=== PATIENT | male | born 2000 | race American Indian/Alaskan Native ===

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

== ENCOUNTER 2020-08-14 06:39 | Emergency (ER) | payer OTHER ==
--- NOTE | 2020-08-14 06:41 | ED ---
General Adult HPI - General Stated complaint: Mental Health Time Seen by Provider: 08/14/20 06:40 Source: patient, RN notes reviewed Mode of arrival: ambulatory Limitations: no limitations - History of Present Illness Initial comments: 20-year-old male presents to the emergency room for a chief complaint of "being stressed out." Patient reports a week ago he fell and his cousin who had been killed by gang members. Patient reports that since that time he has had a difficult time coping with this. Patient states he cut his arm for the first time to help try to cope. He states he did not want to harm himself but did not know how to make himself feel better otherwise. He denies any suicidal thoughts. Denies homicidal thoughts or thoughts of harming anyone else.Patient has no other complaints at this time including shortness of breath, chest pain, abdominal pain, nausea or vomiting, headache, or visual changes. - Related Data Home Medications Medication Instructions Recorded Confirmed No Known Home Medications 08/14/20 08/14/20 Allergies Allergy/AdvReac Type Severity Reaction Status Date / Time No Known Allergies Allergy Verified 08/14/20 13:25 Review of Systems ROS Statement: Those systems with pertinent positive or pertinent negative responses have been documented in the HPI. ROS Other: All systems not noted in ROS Statement are negative. Past Medical History Past Medical History: No Reported History History of Any Multi-Drug Resistant Organisms: None Reported Past Surgical History: No Surgical Hx Reported Past Psychological History: No Psychological Hx Reported Past Alcohol Use History: None Reported Past Drug Use History: None Reported General Exam General appearance: alert, in no apparent distress Head exam: Present: atraumatic, normocephalic, normal inspection Eye exam: Present: normal appearance, PERRL, EOMI. Absent: scleral icterus, conjunctival injection ENT exam: Present: normal exam, mucous membranes moist Neck exam: Present: normal inspection, full ROM. Absent: tenderness, meningismus, lymphadenopathy Respiratory exam: Present: normal lung sounds bilaterally. Absent: respiratory distress, wheezes, rales, rhonchi, stridor Cardiovascular Exam: Present: regular rate, normal rhythm, normal heart sounds. Absent: systolic murmur, diastolic murmur, rubs, gallop, clicks GI/Abdominal exam: Present: soft, normal bowel sounds. Absent: distended, tenderness, guarding, rebound, rigid Extremities exam: Present: other (superficial lacerations noted to the left volar forearm. No deep lacerations requiring suturing.) Course Vital Signs 08/14/20 06:46 Temperature 97.8 F Pulse Rate 70 Respiratory 18 Rate Blood Pressure 141/90 O2 Sat by Pulse 100 Oximetry Medical Decision Making - Medical Decision Making Patient was evaluated by EPS. Safety plan was contacted to help patient form coping skills rather than self-harm. He has been given outpatient referrals for psychology. He again denies any thoughts of harming himself or anyone else. He states he does not want to harm himself and does not want to cut again. Patient will return for any worsening symptoms. - Lab Data Lab Results 08/14/20 Range/Units 07:39 Urine Opiates Screen Not Detected (NotDetected) Ur Oxycodone Screen Not Detected (NotDetected) Urine Methadone Screen Not Detected (NotDetected) Ur Propoxyphene Screen Not Detected (NotDetected) Ur Barbiturates Screen Not Detected (NotDetected) U Tricyclic Antidepress Not Detected (NotDetected) Ur Phencyclidine Scrn Not Detected (NotDetected) Ur Amphetamines Screen Not Detected (NotDetected) U Methamphetamines Scrn Not Detected (NotDetected) U Benzodiazepines Scrn Not Detected (NotDetected) Urine Cocaine Screen Not Detected (NotDetected) U Marijuana (THC) Screen Not Detected (NotDetected) Disposition Clinical Impression: Situational disturbance Disposition: HOME SELF-CARE Condition: Good Instructions (If sedation given, give patient instructions): Depression (ED) Additional Instructions: Please follow up with outpatient referrals. If you have any worsening symptoms or thoughts of harming herself return to the emergency room. Is patient prescribed a controlled substance at d/c from ED?: No Referrals: Michel Plata [STAFF PHYSICIAN] - 1-2 days Time of Disposition: 13:53
[2020-08-14 06:52] VITALS: BP 141/90; PULSE 70; RESP 18; TEMP 97.8
[2020-08-14] MEDS ORDERED: DIPH,PERTUS(ACELL)TETVAC-LF 0.5 ML VIAL IM ONE (07:35)
[2020-08-14 08:18] LABS: Amphetamine Screen,Urine Not Detected (NotDetected); Barbiturate Screen,Urine Not Detected (NotDetected); Benzodiazepines Screen,Urine Not Detected (NotDetected); Cocaine Screen,Urine Not Detected (NotDetected); Methadone Screen, Urine Not Detected (NotDetected); Opiate Screen,Urine Not Detected (NotDetected); Oxycodone Screen, Urine Not Detected (NotDetected); Phencyclidine Screen,Urine Not Detected (NotDetected); Tricyclic Antidepressant,Urine Not Detected (NotDetected); Urn Cannabinoid Scrn Not Detected (NotDetected)
[2020-08-14] MEDS ORDERED: BACITRACIN OINT 1 EACH PACKET TOPICAL STA (09:50)
== END 2020-08-14 14:12 | disposition home or self-care (01) ==
LOC: EC 06:39
DX: F43.20 Adjustment disorder, unspecified (principal); S51.812A Laceration without foreign body of left forearm, initial encounter; Z23 Encounter for immunization; X78.9XXA Intentional self-harm by unspecified sharp object, initial encounter
CPT/HCPCS: 80306; 82075; 90471; 90715; 99284

== ENCOUNTER 2023-10-15 22:09 | Emergency (ER) | payer OTHER ==
--- NOTE | 2023-10-15 22:12 | ED ---
Chest Pain HPI - General Source: patient, RN notes reviewed Mode of arrival: ambulatory Limitations: no limitations - History of Present Illness MD Complaint: chest pain <Frida Garcia - Last Filed: 10/15/23 22:10> <Luis Foote - Last Filed: 10/16/23 03:11> - General Chief Complaint: Chest Pain Stated Complaint: Chest Pressure,Sob Time Seen by Provider: 10/15/23 22:10 - History of Present Illness Initial Comments: This is a 23-year-old male who presents to the emergency department for chest pain. States that this is a heaviness sensation. He has associated shortness of breath. Symptoms began last night. Denies any history of cardiac problems. (Frida Garcia) 23-year-old male presents to the ED with a chief complaint of chest pain. Patient states that this is been ongoing for the last 2 to 3 days however recently worsening today. States that pain is across his entire chest. States when pain comes on sometimes he feels as if it takes his breath away otherwise denies shortness of breath. Patient notes worsening of pain with movement and cough. Patient notes that he vapes and coughs often secondary to vape use. Denies any exogenous hormone use. Denies leg swelling or pain. Denies hemoptysis. No recent surgeries. No recent extended travel or periods of immobility. No other complaints at this time. (Luis Foote) - Related Data Previous Rx's Medication Instructions Recorded Acetaminophen Tab [Tylenol] 650 mg PO Q6H #30 tab 10/16/23 Ibuprofen [Motrin] 600 mg PO Q8HR PRN #30 tab 10/16/23 Allergies Allergy/AdvReac Type Severity Reaction Status Date / Time No Known Allergies Allergy Verified 10/15/23 22:51 Review of Systems ROS Other: All systems not noted in ROS Statement are negative. <Frida Garcia - Last Filed: 10/15/23 22:10> ROS Other: All systems not noted in ROS Statement are negative. <Luis Foote - Last Filed: 10/16/23 03:11> ROS Statement: Those systems with pertinent positive or pertinent negative responses have been documented in the HPI. Past Medical History Past Medical History: No Reported History History of Any Multi-Drug Resistant Organisms: None Reported Past Surgical History: No Surgical Hx Reported Past Psychological History: No Psychological Hx Reported Past Alcohol Use History: None Reported Past Drug Use History: None Reported <Frida Garcia - Last Filed: 10/15/23 22:10> General Exam <Frida Garcia - Last Filed: 10/15/23 22:10> General appearance: alert, in no apparent distress Eye exam: Present: normal appearance Neck exam: Present: normal inspection Respiratory exam: Present: normal lung sounds bilaterally, other (Reproducible anterior chest wall tenderness to palpation.) Cardiovascular Exam: Present: regular rate, normal rhythm GI/Abdominal exam: Present: soft Neurological exam: Present: alert, oriented X3 Skin exam: Present: warm, dry <Luis Foote - Last Filed: 10/16/23 03:11> - General Exam Comments Initial Comments: Visual Physical Exam Vital signs reviewed General: Well-appearing, nontoxic, no acute distress. Head: Normocephalic, atraumatic Eyes: PERRLA, EOMI ENT: Airway patent Chest: Nonlabored breathing Skin: No visual rash, normal skin tone Neuro: Alert and oriented 3 Musculoskeletal: No gross abnormalities (Frida Garcia) Course Vital Signs 10/15/23 22:51 Temperature 97.7 F Pulse Rate 70 Respiratory 16 Rate Blood Pressure 122/70 O2 Sat by Pulse 99 Oximetry Chest Pain MDM <Frida Garcia - Last Filed: 10/15/23 22:10> <Luis Foote - Last Filed: 10/16/23 03:11> - MDM I performed the QuickNote portion of this chart. Signed Frida Garcia PA-C. (Frida Garcia) Was pt. sent in by a medical professional or institution (ALEXA Snell, MEDIA RELATIONS INTERN, urgent care, hospital, or [place] [facility] facility...) When possible be specific @ -No Did you speak to anyone other than the patient for history (EMS, parent, family, police, friend...)? What history was obtained from this source @ -No Did you review nursing and triage notes (agree or disagree)? Why? @ -I reviewed and agree with nursing and triage notes Were old charts reviewed (outside hosp., previous admission, EMS record, old EKG, old radiological studies, urgent care reports/EKG's, [place] [facility] facility records)? Report findings @ -No old charts were reviewed Differential Diagnosis (chest pain, altered mental status, abdominal pain women, abdominal pain men, vaginal bleeding, weakness, fever, dyspnea, syncope, headache, dizziness, GI bleed, back pain, seizure, CVA, palpatations, mental health, musculoskeletal)? @ -Differential Chest Pain: Stable Angina, Unstable Angina, STEMI, NSTEMI Aortic Dissection, Pneumothorax, Musculoskeletal, Esophageal Spasm GERD, Cholecystitis, Pancreatitis, Zoster, this is not meant to be an all-inclusive list. EKG interpreted by me (3pts min.). @ -EKG interpreted by me showing a sinus rhythm at [address] or T wave changes. IL 130, QRS 96, QT/QTc 363/370. X-rays interpreted by me (1pt min.). @ -Chest x-ray interpreted by me showing no evidence of acute finding. CT interpreted by me (1pt min.). @ -None done U/S interpreted by me (1pt. min.). @ -None done What testing was considered but not performed or refused? (CT, X-rays, U/S, labs)? Why? @ -D-dimer considered however on exam reproducible chest pain to palpation and at this time PERC criteria score 0. What meds were considered but not given or refused? Why? @ -None Did you discuss the management of the patient with other professionals (professionals i.e. , PA, MEDIA RELATIONS INTERN, lab, RT, psych nurse, clinical social work therapist, operations support analyst, teacher, bsa/aml compliance officer, case loader operator)? Give summary @ -No Was smoking cessation discussed for >3mins.? @ -Yes, patient inquired about methods to decrease vaping use. Advise follow- up with his PCP. Discussed methods such as medication assisted treatment. Was critical care preformed (if so, how long)? @ -No Were there social determinants of health that impacted care today? How? (Homelessness, low income, unemployed, alcoholism, drug addiction, transportation, low edu. Level, literacy, decrease access to med. care, custodial, rehab)? @ -No Was there de-escalation of care discussed even if they declined (Discuss DNR or withdrawal of care, Hospice)? DNR status @ -No What co-morbidities impacted this encounter? (DM, HTN, Smoking, COPD, CAD, Cancer, CVA, ARF, Chemo, Hep., AIDS, mental health diagnosis, sleep apnea, morbid obesity)? @ -Vape use Was patient admitted / discharged? Hospital course, mention meds given and route, prescriptions, significant lab abnormalities, going to OR and other pertinent info. @ -Discharge 23-year-old male presented ED with a chief complaint of chest pain across his entire chest. Patient reports a heavy cough secondary to vaping. Laboratory studies at this time including CBC, chemistry panel, troponin negative. EKG shows a normal sinus rhythm without acute ST or T wave changes. At this time PERC criteria 0. Symptoms likely musculoskeletal in nature. Discharged home in stable condition. Advised follow-up with PCP to inquire about methods of medication assisted nicotine/vaping cessation Undiagnosed new problem with uncertain prognosis? @ -No Drug Therapy requiring intensive monitoring for toxicity (Heparin, Nitro, Insulin, Cardizem)? @ -No Were any procedures done? @ -No Diagnosis/symptom? @ -Chest pain Acute, or Chronic, or Acute on Chronic? @ -Acute Uncomplicated (without systemic symptoms) or Complicated (systemic symptoms)? @ -Uncomplicated Side effects of treatment? @ -No Exacerbation, Progression, or Severe Exacerbation? @ -No Poses a threat to life or bodily function? How? (Chest pain, [place], [place], pneumonia, PE, COPD, DKA, ARF, appy, cholecystitis, CVA, Diverticulitis, Homicidal, Suicidal, threat to staff... and all critical care pts) @ -No (Luis Foote) Disposition <Frida Garcia - Last Filed: 10/15/23 22:10> Is patient prescribed a controlled substance at d/c from ED?: No Time of Disposition: 03:11 <Luis Foote - Last Filed: 10/16/23 03:11> Clinical Impression: Chest pain Disposition: HOME SELF-CARE Condition: Good Instructions (If sedation given, give patient instructions): Chest Pain (ED) Additional Instructions: Please return to the Emergency Department if symptoms worsen or any other concerns. Please follow-up with your primary care provider. Prescriptions: Ibuprofen [Motrin] 600 mg PO Q8HR PRN #30 tab PRN Reason: Pain Acetaminophen Tab [Tylenol] 650 mg PO Q6H #30 tab Referrals: None,Stated [Primary Care Provider] - 1-2 days
[2023-10-15 23:04] VITALS: BP 122/70; PULSE 70; RESP 16; TEMP 97.7
[2023-10-15 23:17] LABS: HGB 14.6 gm/dL (13.0-17.5); MCH 27.3 pg (25.0-35.0); MCHC 33.1 g/dL (31.0-37.0); MCV 82.6 fL (80.0-100.0); Platelet Count 290 k/uL (150-450); RBC 5.32 m/uL (4.30-5.90); RDW 13.3 % (11.5-15.5); WBC 6.2 k/uL (3.8-10.6)
[2023-10-15 23:27] LABS: ALT 11 U/L (4-49); AST 23 U/L (17-59); African American GFR (CKD) >90 (>60 ml/min/1.73 sqM); Albumin 4.9 g/dL (3.5-5.0); Alkaline Phosphatase 96 U/L (38-126); Anion Gap 12 mmol/L; Blood Urea Nitrogen 12 mg/dL (9-20); Calcium 9.8 mg/dL (8.4-10.2); Carbon Dioxide 24 mmol/L (22-30); Chloride 102 mmol/L (98-107); Glucose 91 mg/dL (74-99); INR 0.9 (<1.2); Magnesium 1.9 mg/dL (1.6-2.3); Non-African American GFR(CKD) >90 (>60 ml/min/1.73 sqM); Partial Thromboplastin Time 25.5 sec (22.0-30.0); Prothrombin Time 10.5 sec (10.0-12.5); Sodium 138 mmol/L (137-145); Total Bilirubin 0.5 mg/dL (0.2-1.3)
[2023-10-16 00:50] LABS: Eosinophils # (M) 0.74 k/uL (0-0.7); Lymphocytes # (M) 3.84 k/uL (1.0-4.8); Monocytes # (M) 0.62 k/uL (0-1.0); Neutrophils # (M) 0.99 k/uL (1.3-7.7); Neutrophils % (M) 16 %; Nucleated Red Blood Cells 0 /100 WBC (0-0); RBC Morphology Normal; Total Cells Counted 100
--- NOTE | 2023-10-16 01:13 | XR ---
EXAM: XR Chest, 2 Views CLINICAL HISTORY: Chest Pain TECHNIQUE: Frontal and lateral views of the chest. COMPARISON: 06/30/2019 FINDINGS: Lungs: No consolidation. No atelectasis. No CHF. Pleural space: No pleural effusion. No pneumothorax. Heart: No cardiomegaly. Mediastinum: Unremarkable. Normal mediastinal contour. Bones/joints: Unremarkable. No acute fracture. IMPRESSION: No acute abnormality.
[2023-10-16] MEDS ORDERED: IBUPROFEN 600 MG STARTER PACK 4 TAB BTL PO STA (03:11)
== END 2023-10-16 04:03 | disposition home or self-care (01) ==
LOC: EC 22:09
DX: R07.89 Other chest pain (principal)
CPT/HCPCS: 36415; 71046; 80053; 83735; 84484; 85025; 85610; 85730; 93005; 99285; 99406

== ENCOUNTER → 2023-11-07 | Outpatient (CLI) | payer OTHER ==
--- NOTE | 2023-11-07 11:57 | US ---
EXAMINATION TYPE: US abdomen complete DATE OF EXAM: 11/07/2023 COMPARISON: NONE CLINICAL INDICATION: Male, 23 years old with history of D70.9 NEUTROPENIA, UNSPECIFIED; abnormal labs . Patient states left side pain. TECHNIQUE: Multiple sonographic images of the abdomen are obtained. FINDINGS: EXAM MEASUREMENTS: Liver Length: 13.5 cm Gallbladder Wall: 0.1 cm CBD: 0.3 cm Spleen: 6.5 cm Right Kidney: 8.7 x 4.1 x 3.2 cm Left Kidney: 8.1 x 3.4 x 4.9 cm Pancreas: Limited visualization of head Liver: wnl Gallbladder: no stones or wall thickening Evidence for sonographic Farooq's sign: neg CBD: wnl Spleen: wnl Right Kidney: No hydronephrosis or masses seen Left Kidney: No hydronephrosis or masses seen Upper IVC: wnl Abd Aorta: No AAA visualized at time of scan The liver is homogenous. The intrahepatic portion of the IVC and proximal abdominal aorta are within normal limits. There is no evidence of cholelithiasis. Common bile duct is unremarkable. The visu alized portions of the pancreas are homogenous. The spleen is unremarkable. Kidneys are symmetric a nd free of hydronephrosis. No renal lesions are seen. IMPRESSION: 1. Unremarkable abdominal ultrasound.
== END | disposition home or self-care (01) ==
LOC: RADUSWWP 08:04
PROVIDERS: ATTEND Internal Medicine Hematology & Oncology
DX: D70.9 Neutropenia, unspecified (principal); R79.9 Abnormal finding of blood chemistry, unspecified; R10.84 Generalized abdominal pain
CPT/HCPCS: 76700

== ENCOUNTER 2024-03-21 17:33 | Emergency (ER) | payer OTHER ==
--- NOTE | 2024-03-21 17:57 | ED ---
Abdominal Pain HPI <Estelle Garcia - Last Filed: 03/21/24 17:55> - General Source: patient, RN notes reviewed Mode of arrival: ambulatory Limitations: no limitations <Madhuri Nino - Last Filed: 03/21/24 20:43> - General Stated Complaint: Vomiting Time Seen by Provider: 03/21/24 17:55 - History of Present Illness Initial Comments: Quick [id number] male presenting with abdominal pain x 1 week. Describes the pain as cramping and diffuse. States he has not been able to eat in 8 days due to the pain. Denies vomiting, fever, chills, diarrhea, constipation. (Estelle Garcia) 23-year-old male presented to the ER with a chief complaint of abdominal pain. He reports this been ongoing for the past week. He does scribes it as left- sided abdominal cramping with associated diarrhea. He denies any hematochezia he does report his stools have been darker than normal. He also is admitting to a decreased appetite. He denies any fevers, chills, nightsweats, nausea or vomiting. (Madhuri Nino) - Related Data Previous Rx's Medication Instructions Recorded Acetaminophen Tab [Tylenol] 650 mg PO Q6H #30 tab 10/16/23 Ibuprofen [Motrin] 600 mg PO Q8HR PRN #30 tab 10/16/23 Docusate [Colace] 100 mg PO DAILY #10 capsule 03/21/24 polyethylene glycoL 3350 [Miralax] 17 gm PO DAILY 10 Days #527 gm 03/21/24 Allergies Allergy/AdvReac Type Severity Reaction Status Date / Time No Known Allergies Allergy Verified 03/21/24 18:03 Review of Systems ROS Other: All systems not noted in ROS Statement are negative. <Estelle Garcia - Last Filed: 03/21/24 17:55> ROS Other: All systems not noted in ROS Statement are negative. <Madhuri Nino - Last Filed: 03/21/24 20:43> ROS Statement: Those systems with pertinent positive or pertinent negative responses have been documented in the HPI. Past Medical History Past Medical History: No Reported History History of Any Multi-Drug Resistant Organisms: None Reported Past Surgical History: No Surgical Hx Reported Additional Past Surgical History / Comment(s): right hand Past Psychological History: No Psychological Hx Reported Smoking Status: Vaper Past Alcohol Use History: None Reported Past Drug Use History: None Reported <JoseAnaEstelle - Last Filed: 03/21/24 17:55> General Exam <Estelle Garcia - Last Filed: 03/21/24 17:55> General appearance: alert, in no apparent distress Respiratory exam: Present: normal lung sounds bilaterally. Absent: respiratory distress, wheezes, rales, rhonchi, stridor Cardiovascular Exam: Present: regular rate, normal rhythm, normal heart sounds. Absent: systolic murmur, diastolic murmur, rubs, gallop, clicks GI/Abdominal exam: Present: soft, tenderness (left sided), normal bowel sounds. Absent: distended, guarding, rebound, rigid Extremities exam: Present: normal inspection, full ROM, normal capillary refill. Absent: tenderness, pedal edema, joint swelling, calf tenderness Skin exam: Present: warm, dry, intact, normal color. Absent: rash <Madhuri Nino - Last Filed: 03/21/24 20:43> - General Exam Comments Initial Comments: Visual Physical Exam General: Well-appearing, nontoxic, no acute distress. Head: Normocephalic, atraumatic Eyes: PERRLA, EOMI ENT: Airway patent Chest: Nonlabored breathing Skin: No visual rash, normal skin tone Neuro: Alert and oriented 3 Musculoskeletal: No gross abnormalities (JoseEstelle) Course Vital Signs 03/21/24 03/21/24 17:57 19:25 Temperature 98.1 F Pulse Rate 69 57 L Respiratory 17 16 Rate Blood Pressure 106/73 113/81 O2 Sat by Pulse 99 100 Oximetry Medical Decision Making <JoseEstelle - Last Filed: 03/21/24 17:55> - Lab Data Result diagrams: 03/21/24 18:35 03/21/24 18:35 - Radiology Data Radiology results: report reviewed, image reviewed <Madhuri Nino - Last Filed: 03/21/24 20:43> - Medical Decision Making I completed the quick note portion of this chart signed Estelle Garcia PA-C (Estelle Garcia) Was pt. sent in by a medical professional or institution (, PA, POWER BARKER OPERATOR, urgent care, hospital, or [facility]ci...) When possible be specific @ -No Did you speak to anyone other than the patient for history (EMS, parent, family, police, friend...)? What history was obtained from this source @ -No Did you review nursing and triage notes (agree or disagree)? Why? @ -I reviewed and agree with nursing and triage notes Were old charts reviewed (outside hosp., previous admission, EMS record, old EKG, old radiological studies, urgent care reports/EKG's, [facility]ci records)? Report findings @ -No old charts were reviewed Differential Diagnosis (chest pain, altered mental status, abdominal pain women, abdominal pain men, vaginal bleeding, weakness, fever, dyspnea, syncope, headache, dizziness, GI bleed, back pain, seizure, CVA, palpatations, mental health, musculoskeletal)? @ -Differential Abdominal Pain Men: Appendicitis, cholecystitis, d iverticulosis, ischemic bowel, pancreatitis, hepatitis, UTI, gastroenteritis, AAA, incarcerated hernia, bowel obstruction, constipation, inflammatory bowel, hepatitis, peptic ulcer disease, splenic infarction, perforated viscus, testicular torsion, this is not meant to be an all-inclusive list EKG interpreted by me (3pts min.). @ -None X-rays interpreted by me (1pt min.). @ -None done CT interpreted by me (1pt min.). @ -CT abdomen pelvis negative for acute process. There is a moderate amount of stool throughout the colon. U/S interpreted by me (1pt. min.). @ -None done What testing was considered but not performed or refused? (CT, X-rays, U/S, labs)? Why? @ -None What meds were considered but not given or refused? Why? @ -None Did you discuss the management of the patient with other professionals (professionals i.e. , PA, POWER BARKER OPERATOR, lab, RT, psych nurse, social media community manager, toilet and laundry soap supervisor, teacher, mobile patrol officer, employment case manager)? Give summary @ -No Was smoking cessation discussed for >3mins.? @ -No Was critical care preformed (if so, how long)? @ -No Were there social determinants of health that impacted care today? How? (Homelessness, low income, unemployed, alcoholism, drug addiction, transportation, low edu. Level, literacy, decrease access to med. care, usp, re hab)? @ -No Was there de-escalation of care discussed even if they declined (Discuss DNR or withdrawal of care, Hospice)? DNR status @ -No What co-morbidities impacted this encounter? (DM, HTN, Smoking, COPD, CAD, Cancer, CVA, ARF, Chemo, Hep., AIDS, mental health diagnosis, sleep apnea, morbid obesity)? @ -None Was patient admitted / discharged? Hospital course, mention meds given and route, prescriptions, significant lab abnormalities, going to OR and other pertinent info. @ -Discharge. 23-year-old male presented to the ER with a chief complaint of left-sided abdominal pain. History and physical exam completed. Vitals stable. Patient no signs of acute distress and nontoxic-appearing. Exam remarkable for left-sided abdominal tenderness with normal bowel sounds no rebound tenderness or guarding. Laboratory studies and urine analysis obtained unimpressive. CT abdomen pelvis performed negative for acute process. There is a moderate amount of stool throughout the colon. Pain believed to be related to constipation. Upon reevaluation, patient resting comfortably in exam room reporting mildly improvement of pain. Results discussed with patient, all questions answered. Patient discharged with magnesium citrate. MiraLAX and Colace prescribed. I advised close follow-up with PCP, referrals given. Strict return parameters discussed. Patient discharged in stable condition. Patient and father, at bedside, verbally expressed understanding and agreement with care plan. Case discussed with ED attending, Dr. Patterson. Undiagnosed new problem with uncertain prognosis? @ -No Drug Therapy requiring intensive monitoring for toxicity (Heparin, Nitro, Insulin, Cardizem)? @ -No Were any procedures done? @ -No Diagnosis/symptom? @ -Constipation Acute, or Chronic, or Acute on Chronic? @ -Acute Uncomplicated (without systemic symptoms) or Complicated (systemic symptoms)? @ -Uncomplicated Side effects of treatment? @ -No Exacerbation, Progression, or Severe Exacerbation? @ -No Poses a threat to life or bodily function? How? (Chest pain, [place], [place], pneumonia, PE, COPD, DKA, ARF, appy, cholecystitis, CVA, Diverticulitis, Homicidal, Suicidal, threat to staff... and all critical care pts) @ -No (Madhuri Nino) - Lab Data Lab Results 03/21/24 03/21/24 03/21/24 Range/Units 18:35 18:35 18:35 WBC 5.3 (3.8-10.6) k/uL RBC 4.91 (4.30-5.90) m/uL Hgb 13.6 (13.0-17.5) gm/dL Hct 41.0 (39.0-53.0) % MCV 83.5 (80.0-100.0) fL MCH 27.7 (25.0-35.0) pg MCHC 33.1 (31.0-37.0) g/dL RDW 13.6 (11.5-15.5) % Plt Count 249 (150-450) k/uL MPV 8.4 Neutrophils % 48 % Lymphocytes % 36 % Monocytes % 9 % Eosinophils % 6 % Basophils % 0 % Neutrophils # 2.5 (1.3-7.7) k/uL Lymphocytes # 1.9 (1.0-4.8) k/uL Monocytes # 0.5 (0-1.0) k/uL Eosinophils # 0.3 (0-0.7) k/uL Basophils # 0.0 (0-0.2) k/uL Sodium 138 (137-145) mmol/L Potassium 3.5 (3.5-5.1) mmol/L Chloride 105 (98-107) mmol/L Carbon Dioxide 29 (22-30) mmol/L Anion Gap 4 mmol/L BUN 9 (9-20) mg/dL Creatinine 0.66 (0.66-1.25) mg/dL Est GFR (CKD-EPI)AfAm >90 (>60 ml/min/1.73 sqM) Est GFR (CKD-EPI)NonAf >90 (>60 ml/min/1.73 sqM) Glucose 84 (74-99) mg/dL Plasma Lactic Acid [place] 1.0 (0.7-2.0) mmol/L Calcium 9.3 (8.4-10.2) mg/dL Total Bilirubin 0.4 (0.2-1.3) mg/dL AST 20 (17-59) U/L ALT 7 (4-49) U/L Alkaline Phosphatase 64 (38-126) U/L Total Protein 6.6 (6.3-8.2) g/dL Albumin 4.1 (3.5-5.0) g/dL Amylase 109 (30-110) U/L Lipase 154 (23-300) U/L Urine Color Urine Appearance (Clear) Urine pH (5.0-8.0) Ur Specific [place] (1.001-1.035) Urine Protein (Negative) Urine Glucose (UA) (Negative) Urine Ketones (Negative) Urine Blood (Negative) Urine Nitrite (Negative) Urine Bilirubin (Negative) Urine Urobilinogen (<2.0) mg/dL Ur Leukocyte Esterase (Negative) Urine RBC (0-5) /hpf Urine WBC (0-5) /hpf Amorphous Sediment (None) /hpf Urine Mucus (None) /hpf 03/21/24 Range/Units 18:45 WBC (3.8-10.6) k/uL RBC (4.30-5.90) m/uL Hgb (13.0-17.5) gm/dL Hct (39.0-53.0) % MCV (80.0-100.0) fL MCH (25.0-35.0) pg MCHC (31.0-37.0) g/dL RDW (11.5-15.5) % Plt Count (150-450) k/uL MPV Neutrophils % % Lymphocytes % % Monocytes % % Eosinophils % % Basophils % % Neutrophils # (1.3-7.7) k/uL Lymphocytes # (1.0-4.8) k/uL Monocytes # (0-1.0) k/uL Eosinophils # (0-0.7) k/uL Basophils # (0-0.2) k/uL Sodium (137-145) mmol/L Potassium (3.5-5.1) mmol/L Chloride (98-107) mmol/L Carbon Dioxide (22-30) mmol/L Anion Gap mmol/L BUN (9-20) mg/dL Creatinine (0.66-1.25) mg/dL Est GFR (CKD-EPI)AfAm (>60 ml/min/1.73 sqM) Est GFR (CKD-EPI)NonAf (>60 ml/min/1.73 sqM) Glucose (74-99) mg/dL Plasma Lactic Acid [place] (0.7-2.0) mmol/L Calcium (8.4-10.2) mg/dL Total Bilirubin (0.2-1.3) mg/dL AST (17-59) U/L ALT (4-49) U/L Alkaline Phosphatase (38-126) U/L Total Protein (6.3-8.2) g/dL Albumin (3.5-5.0) g/dL Amylase (30-110) U/L Lipase (23-300) U/L Urine Color Light Yellow Urine Appearance Cloudy (Clear) Urine pH 7.0 (5.0-8.0) Ur Specific [place] 1.023 (1.001-1.035) Urine Protein Negative (Negative) Urine Glucose (UA) Negative (Negative) Urine Ketones Negative (Negative) Urine Blood Negative (Negative) Urine Nitrite Negative (Negative) Urine Bilirubin Negative (Negative) Urine Urobilinogen 3.0 (<2.0) mg/dL Ur Leukocyte Esterase Negative (Negative) Urine RBC <1 (0-5) /hpf Urine WBC 1 (0-5) /hpf Amorphous Sediment Rare H (None) /hpf Urine Mucus Rare H (None) /hpf Disposition <Estelle Garcia - Last Filed: 03/21/24 17:55> Is patient prescribed a controlled substance at d/c from ED?: No Time of Disposition: 20:25 <Madhuri Nino - Last Filed: 03/21/24 20:43> Clinical Impression: Constipation Disposition: HOME SELF-CARE Condition: Stable Instructions (If sedation given, give patient instructions): Constipation (ED), Fleet Enema (ED) Additional Instructions: I recommend taking miralax daily. Take magnesium citrate by mouth for constipation relief. Follow-up with primary care physician next week. Return to the ER for any new or worsening concerns. Prescriptions: Docusate [Colace] 100 mg PO DAILY #10 capsule polyethylene glycoL 3350 [Miralax] 17 gm PO DAILY 10 Days #527 gm Referrals: Isela Cuellar MD [Primary Care Provider] - 1-2 days Forms: Area PCPs
[2024-03-21 18:03] VITALS: TEMP 98.1
[2024-03-21] MEDS: SODIUM CHLORIDE 0.9% 500 ML 500 ML IV STA (18:40)
[2024-03-21 18:51] LABS: Basophils % (A) 0 %; Eosinophils # (A) 0.3 k/uL (0-0.7); Eosinophils % (A) 6 %; HGB 13.6 gm/dL (13.0-17.5); Lymphocytes # (A) 1.9 k/uL (1.0-4.8); Lymphocytes % (A) 36 %; MCH 27.7 pg (25.0-35.0); MCHC 33.1 g/dL (31.0-37.0); MCV 83.5 fL (80.0-100.0); Mean Platelet Volume 8.4; Monocytes # (A) 0.5 k/uL (0-1.0); Monocytes % (A) 9 %; Neutrophils # (A) 2.5 k/uL (1.3-7.7); Neutrophils % (A) 48 %; Platelet Count 249 k/uL (150-450); RBC 4.91 m/uL (4.30-5.90); RDW 13.6 % (11.5-15.5); WBC 5.3 k/uL (3.8-10.6)
[2024-03-21 19:03] LABS: ALT 7 U/L (4-49); AST 20 U/L (17-59); African American GFR (CKD) >90 (>60 ml/min/1.73 sqM); Albumin 4.1 g/dL (3.5-5.0); Alkaline Phosphatase 64 U/L (38-126); Amylase 109 U/L (30-110); Anion Gap 4 mmol/L; Blood Urea Nitrogen 9 mg/dL (9-20); Calcium 9.3 mg/dL (8.4-10.2); Carbon Dioxide 29 mmol/L (22-30); Chloride 105 mmol/L (98-107); Glucose 84 mg/dL (74-99); Lipase 154 U/L (23-300); Non-African American GFR(CKD) >90 (>60 ml/min/1.73 sqM); Potassium 3.5 mmol/L (3.5-5.1); Sodium 138 mmol/L (137-145); Total Bilirubin 0.4 mg/dL (0.2-1.3); Total Protein 6.6 g/dL (6.3-8.2)
[2024-03-21 19:16] LABS: Amorphous Sediment,Urine Rare /hpf; Appearance,Urine Cloudy (Clear); Bilirubin,Urine Negative (Negative); Blood,Urine Negative (Negative); Color,Urine Light Yellow; Glucose,Urine (UA) Negative (Negative); Ketones,Urine Negative (Negative); Leukocyte Esterase,Urine Negative (Negative); Mucus,Urine Rare /hpf; Nitrite,Urine Negative (Negative); Protein,Urine Negative (Negative); RBC,Urine <1 /hpf (0-5); Specific Gravity,Urine 1.023 (1.001-1.035); WBC,Urine 1 /hpf (0-5)
--- NOTE | 2024-03-21 20:02 | CT ---
EXAMINATION TYPE: CT abdomen pelvis w con CT DLP: 332.8 mGycm, Automated exposure control for dose reduction was used. DATE OF EXAM: 03/21/2024 7:19 PM COMPARISON: None CLINICAL INDICATION:Male, 23 years old with history of L sided abd pain; L sided abd pain TECHNIQUE: Axial CT abdomen pelvis w con;Sagittal and coronal reformats were created on a separate w orkstation. Contrast used:70 ml mL of Isovue 300 with IV Contrast, (none if empty) Oral contrast used: without Oral Contrast (none if empty) FINDINGS: LOWER CHEST: Unremarkable ABDOMEN LIVER: Unremarkable GALLBLADDER AND BILE DUCTS: Unremarkable. PANCREAS: Unremarkable. SPLEEN: Unremarkable. ADRENAL GLANDS: Unremarkable. KIDNEYS AND URETERS: No evidence of hydronephrosis or renal calculus. The ureters are unremarkable. PELVIS BLADDER: Unremarkable REPRODUCTIVE: Unremarkable. ABDOMEN & PELVIS STOMACH AND BOWEL: No evidence of bowel obstruction. Large amount stool throughout the colon. PERITONEUM/RETROPERITONEUM: No evidence of pneumoperitoneum or free fluid. VASCULATURE: No evidence of aortic aneurysm. MUSCULOSKELETAL: No acute osseous abnormalities LYMPH NODES: No gross evidence for lymphadenopathy. SOFT TISSUE/ABDOMINAL WALL: Unremarkable IMPRESSION: No acute process. Moderate amount stool throughout the colon.
[2024-03-21] MEDS: MAGNESIUM CITRATE 296 ML BOTTLE PO ONE (20:43)
[2024-03-21 20:50] VITALS: BP 104/66; PULSE 60; RESP 18
== END 2024-03-21 21:02 | disposition home or self-care (01) ==
LOC: EC 17:33
DX: K59.00 Constipation, unspecified (principal); F17.290 Nicotine dependence, other tobacco product, uncomplicated
CPT/HCPCS: 36415; 80053; 82150; 83605; 83690; 85025; 81001; 74177; 99284; 96360; 96361; Q9967